=== PATIENT | male | born 1995 | race Caucasian/White ===

== ENCOUNTER 2017-11-26 18:01 | Emergency (ER) | payer OTHER ==
[~2017-11-26 18:01] MED LIST: CLIN300C99 PO; HYDR-4309 PO; LOR5/325 PO; MULT-1081 PO
--- NOTE | 2017-11-26 18:12 | ER Report ---
History and Physical Time Seen By MD: 18:12 Hx. of Stated Complaint: PATIENT REPORTS THAT HE HAS BEEN FEEING FEVERISH FOR THE LAST 3 DAYS. HE REPORTS THAT ONE EPISODE OF VOMITING EARLIER TODAY THAT HAD SOME BLOOD IN IT HPI/ROS CHIEF COMPLAINT: fever, hematemesis HISTORY OF PRESENT ILLNESS: This is a 22 year old male. He has had fever for several days now. He has had a mild cough. Mild runny nose. No real sore throat. No ear pain. Feels a little short of breath. Earlier today had an episode of vomiting where he vomited up the contents of his stomach that he had just eaten. He threw up the food, then threw up again and had a little blood in the emesis. No blood in stool or melena. He has some food and dietary difficulties, so has intermittent loose stools all the time, and has had some loose stool today as well. No problems with urination. No blood in urine. No nose bleeds. No bruising. No prior bleeding problems. No other stomach problems. Has no real stomach pain at this time. REVIEW OF SYSTEMS: Constitutional: As above. Eyes: No vision changes. ENT: As above. Cardiovascular: No chest pain. Respiratory: As above. Gastrointestinal: No abdominal pain. Genitourinary: No dysuria. Musculoskeletal: No musculoskeletal pain. Skin: No rashes. Neurological: No numbness. No weakness. Has a mild headache. Allergies: Coded Allergies: amoxicillin (Verified Allergy, Unknown, HIVES, 01/07/16) shellfish derived (Verified Allergy, Unknown, stomach ache, 01/07/16) Home Meds Reported Medications Digestive Enzymes Combo No.7 (Superior Digestive Enzyme) 1 Each Capsule 11/26/17 Multivitamin (MULTI VITAMIN DAILY) 1 Each Tablet, 1 EACH PO QDAY 11/26/17 Discontinued Scripts Hydrocodone Bit/Acetaminophen (NORCO 5-325 TABLET) 1 Each Tablet, 1 TAB PO Q4- 6H Y for PAIN, #12 TAB Prov:JORDANA MOLINA 01/07/16 Clindamycin Hcl (CLINDAMYCIN HCL) 300 Mg Capsule, 300 MG PO Q6H, #40 CAPSULE Prov:JORDANA MOLINA 01/07/16 Reviewed Nurses Notes: Yes Hx Smoking: No Hx Substance Use Disorder: No Hx Alcohol Use: No Constitutional Vital Sign - Last 24 Hours 11/26/17 11/26/17 11/26/17 11/26/17 18:04 18:05 18:16 18:30 Temp 98.4 Pulse 70 81 Resp 16 B/P (MAP) 161/93 (115) 161/93 136/76 (96) Pulse Ox 91 90 O2 Delivery Room Air 11/26/17 11/26/17 11/26/17 11/26/17 18:31 18:46 18:51 19:21 Pulse 74 71 74 80 Pulse Ox 97 96 96 87 11/26/17 11/26/17 11/26/17 19:51 20:00 20:06 Pulse 73 89 B/P (MAP) 146/90 (108) Pulse Ox 92 89 Intake and Output 11/26/17 11/26/17 11/27/17 15:00 23:00 07:00 Intake Total 1000 ml Balance 1000 ml Physical Exam General Appearance: The patient is alert. No acute distress. Eyes: Pupils are equal, round. No pallor, injection or icterus. ENT: Mucous membranes are moist. Normal oral mucosa. Posterior oropharynx is normal. Normal nasal mucosa. Normal tympanic membranes and canals. Neck: Supple and non tender. No lymphadenopathy. Respiratory: Breathing easily and unlabored. Lungs are clear to auscultation. Cardiovascular: Regular rate and rhythm. No murmurs, gallops or rubs. Normal capillary refill. No edema. Gastrointestinal: Abdomen is soft, no tenderness throughout. Nondistended. No masses or organomegaly. Normal active bowel sounds. No costovertebral angle tenderness with percussion. Neurological: Alert and oriented x3. Skin: Warm and dry. No rashes. No bruising. Musculoskeletal: Extremities are nontender. No tenderness in palpation of the cervical, thoracic and lumbar spine. DIFFERENTIAL DIAGNOSIS: After history and physical exam, differential diagnosis was considered for patient with hematemesis, fever. We'll look for various causes of bleeding, looking for possible causes of bleeding from the stomach, and the causes of fever with a little bit of shortness breath. Medical Decision Making Data Points Result Diagram: 11/26/17182911/26/17 1830 Laboratory Hematology Test 11/26/17 18:30 11/26/17 19:40 Red Blood Count 5.01 M/uL (4.00-5.60) Mean Corpuscular Volume 93.9 fL (80.0-96.0) Mean Corpuscular Hemoglobin 32.7 pg (26.0-33.0) Mean Corpuscular Hemoglobin Concent 34.8 g/dL (32.0-36.0) Red Cell Distribution Width 12.8 % (11.5-14.5) Mean Platelet Volume 7.9 fL (7.2-11.1) Neutrophils (%) (Auto) 74.2 % (39.4-72.5) Lymphocytes (%) (Auto) 11.2 % (17.6-49.6) Monocytes (%) (Auto) 12.9 % (4.1-12.4) Eosinophils (%) (Auto) 0.5 % (0.4-6.7) Basophils (%) (Auto) 1.2 % (0.3-1.4) Nucleated RBC Relative Count (auto) 0.0 /100WBC Neutrophils # (Auto) 2.4 K/uL (2.0-7.4) Lymphocytes # (Auto) 0.4 K/uL (1.3-3.6) Monocytes # (Auto) 0.4 K/uL (0.3-1.0) Eosinophils # (Auto) 0.0 K/uL (0.0-0.5) Basophils # (Auto) 0.0 K/uL (0.0-0.1) Nucleated RBC Absolute Count (auto) 0.00 K/uL Peripheral Blood Smear Yes Y/N Prothrombin Time 13.9 seconds (12.0-14.4) Prothromb Time International Ratio 1.07 Activated Partial Thromboplast Time 31 seconds (23-35) Sodium Level 136 mmol/L (137-145) Potassium Level 4.1 mmol/L (3.5-5.0) Chloride Level 98 mmol/L (98-107) Carbon Dioxide Level 27 mmol/L (22-30) Blood Urea Nitrogen 22 mg/dl (9-21) Creatinine 1.00 mg/dl (0.66-1.25) Glomerular Filtration Rate Calc > 60.0 Random Glucose 80 mg/dl (75-110) Calcium Level 9.1 mg/dl (8.4-10.2) Total Bilirubin 1.0 mg/dl (0.2-1.3) Aspartate Amino Transf (AST/SGOT) 41 U/L (0-35) Alanine Aminotransferase (ALT/SGPT) 49 U/L (0-56) Alkaline Phosphatase 63 U/L (0-126) Total Protein 8.0 gm/dl (6.3-8.2) Albumin 4.5 g/dl (3.5-5.0) Helicobacter pylori IgG Antibody Negative (NEGATIVE) Influenza Virus Type A (PCR) Negative (NEGATIVE) Influenza Virus Type B (PCR) Positive (NEGATIVE) Urine Color Yellow Urine Clarity Clear Urine pH 6.0 pH (4.8-9.5) Urine Specific [place] 1.024 Urine Protein Negative mg/dL (NEGATIVE) Urine Glucose (UA) Negative mg/dL (NEGATIVE) Urine Ketones Trace mg/dL (NEGATIVE) Urine Blood Negative (NEGATIVE) Urine Nitrite Negative (NEGATIVE) Urine Bilirubin Negative (NEGATIVE) Urine Urobilinogen Negative mg/dL (0.2-1.9) Urine Leukocyte Esterase Negative (NEGATIVE) Urine RBC None /HPF (0-2/HPF) Urine WBC <1 /HPF (0-5/HPF) Urine Squamous Epithelial Cells None /LPF (</=FEW) Urine Bacteria Negative /HPF (NONE-FEW) Urine Mucus None /HPF (NONE-FEW) Chemistry Test 11/26/17 18:30 11/26/17 19:40 White Blood Count 3.3 k/uL (4.5-11.0) Red Blood Count 5.01 M/uL (4.00-5.60) Hemoglobin 16.4 g/dL (14.0-18.0) Hematocrit 47.0 % (42.0-52.0) Mean Corpuscular Volume 93.9 fL (80.0-96.0) Mean Corpuscular Hemoglobin 32.7 pg (26.0-33.0) Mean Corpuscular Hemoglobin Concent 34.8 g/dL (32.0-36.0) Red Cell Distribution Width 12.8 % (11.5-14.5) Platelet Count 144 K/uL (150-450) Mean Platelet Volume 7.9 fL (7.2-11.1) Neutrophils (%) (Auto) 74.2 % (39.4-72.5) Lymphocytes (%) (Auto) 11.2 % (17.6-49.6) Monocytes (%) (Auto) 12.9 % (4.1-12.4) Eosinophils (%) (Auto) 0.5 % (0.4-6.7) Basophils (%) (Auto) 1.2 % (0.3-1.4) Nucleated RBC Relative Count (auto) 0.0 /100WBC Neutrophils # (Auto) 2.4 K/uL (2.0-7.4) Lymphocytes # (Auto) 0.4 K/uL (1.3-3.6) Monocytes # (Auto) 0.4 K/uL (0.3-1.0) Eosinophils # (Auto) 0.0 K/uL (0.0-0.5) Basophils # (Auto) 0.0 K/uL (0.0-0.1) Nucleated RBC Absolute Count (auto) 0.00 K/uL Peripheral Blood Smear Yes Y/N Prothrombin Time 13.9 seconds (12.0-14.4) Prothromb Time International Ratio 1.07 Activated Partial Thromboplast Time 31 seconds (23-35) Glomerular Filtration Rate Calc > 60.0 Calcium Level 9.1 mg/dl (8.4-10.2) Total Bilirubin 1.0 mg/dl (0.2-1.3) Aspartate Amino Transf (AST/SGOT) 41 U/L (0-35) Alanine Aminotransferase (ALT/SGPT) 49 U/L (0-56) Alkaline Phosphatase 63 U/L (0-126) Total Protein 8.0 gm/dl (6.3-8.2) Albumin 4.5 g/dl (3.5-5.0) Helicobacter pylori IgG Antibody Negative (NEGATIVE) Influenza Virus Type A (PCR) Negative (NEGATIVE) Influenza Virus Type B (PCR) Positive (NEGATIVE) Urine Color Yellow Urine Clarity Clear Urine pH 6.0 pH (4.8-9.5) Urine Specific [place] 1.024 Urine Protein Negative mg/dL (NEGATIVE) Urine Glucose (UA) Negative mg/dL (NEGATIVE) Urine Ketones Trace mg/dL (NEGATIVE) Urine Blood Negative (NEGATIVE) Urine Nitrite Negative (NEGATIVE) Urine Bilirubin Negative (NEGATIVE) Urine Urobilinogen Negative mg/dL (0.2-1.9) Urine Leukocyte Esterase Negative (NEGATIVE) Urine RBC None /HPF (0-2/HPF) Urine WBC <1 /HPF (0-5/HPF) Urine Squamous Epithelial Cells None /LPF (</=FEW) Urine Bacteria Negative /HPF (NONE-FEW) Urine Mucus None /HPF (NONE-FEW) Coagulation Test 11/26/17 18:30 Prothrombin Time 13.9 seconds Prothromb Time International Ratio 1.07 Activated Partial Thromboplast Time 31 seconds Urinalysis Test 11/26/17 19:40 Urine Color Yellow Urine Clarity Clear Urine pH 6.0 pH (4.8-9.5) Urine Specific [place] 1.024 Urine Protein Negative mg/dL (NEGATIVE) Urine Glucose (UA) Negative mg/dL (NEGATIVE) Urine Ketones Trace mg/dL (NEGATIVE) Urine Blood Negative (NEGATIVE) Urine Nitrite Negative (NEGATIVE) Urine Bilirubin Negative (NEGATIVE) Urine Urobilinogen Negative mg/dL (0.2-1.9) Urine Leukocyte Esterase Negative (NEGATIVE) Urine RBC None /HPF (0-2/HPF) Urine WBC <1 /HPF (0-5/HPF) Urine Squamous Epithelial Cells None /LPF (</=FEW) Urine Bacteria Negative /HPF (NONE-FEW) Urine Mucus None /HPF (NONE-FEW) ED Course/Re-evaluation Clinical Indication for ER IV: Hydration, IV Access ED Course Initial evaluation as noted above. IV started and Zofran and a liter of normal saline was given. Patient feels much better. Labs as noted above; reviewed these with the patient. Likely small bleeding after vomiting from surface vessel in esophagus, but could be ulcer disease. He has follow-up planned in 2 weeks with his doctor in [place]. Can follow-up with Dr. Lynn or [facility] this week. Avoid foods that would cause stomach upset as noted below. Start PPI and Zofran available as needed. Influenza symptoms should resolve over time with fluid and rest. Start Tylenol for pain or fevers. Decision to Disposition Date: Nov 26, 2017 Decision to Disposition Time: 19:57 Depart Departure Latest Vital Signs Vital Signs Date Time Temp Pulse Resp B/P (MAP) Pulse Ox O2 Delivery O2 Flow Rate FiO2 11/26/17 20:06 89 89 11/26/17 20:00 146/90 (108) 11/26/17 18:05 98.4 16 Room Air Impression: Primary Impression: Influenza Additional Impression: Hematemesis Condition: Improved Disposition: HOME OR SELF-CARE Referrals: MARKO LYNN MD Patient Instructions: Hematemesis (ED), Influenza (ED) Additional Instructions: Lab testing tonight did not reveal any major problems. Your platelets were just a touch low, the rest of the blood count was normal. You have influenza which is causing most of your symptoms. The blood in the vomiting was likely caused by a little bleeding from the esophagus related to the vomiting. Avoid aspirin and Ibuprofen for now. Avoid any foods that are irritating to the stomach such as coffee, chocolate, acidic food or very spicy foods. Take Tylenol as needed for pain. Rest and increase fluid intake. If you have further bleeding such as blood in the stool or further vomiting of blood you can return here for re-evaluation. You can follow-up with [facility] this week for re- evaluation. You can make an appointment with one of the general surgeons in [facility] who can re- evaluate and do an upper endoscopy to look into your stomach and esophagus. You can start taking over the counter Omeprazole 20mg tablets or capsules, take twice a day. You can use Zofran 4mg oral dissolving tablets, one every 6 hours as needed for nausea or vomiting. Problem Qualifiers Additional Impression: Hematemesis Nausea presence: with nausea Qualified Codes: K92.0 - Hematemesis CHASE HOGUE MD Nov 26, 2017 18:12
[2017-11-26] MEDS ORDERED: MULT1TAB64 PO (18:13)
[2017-11-26] MEDS ORDERED: DIGE1CAP (18:13)
[2017-11-26] MEDS ORDERED: ONDANSETRON 4 MG/2 ML VIAL IVP ONE (18:25)
[2017-11-26] MEDS ORDERED: NS(*) 0.9% 1000 ML BAG 1,000 ML IV ONE (18:25)
[2017-11-26 18:47] LABS: PLATELET COUNT, AUTOMATED 144 K/uL (150-450)
[2017-11-26 18:56] LABS: INR 1.07
--- NOTE | 2017-11-26 19:46 | RADIOLOGY IMAGING REPORT ---
FACILITY: [facility] PATIENT NAME: Chu Mahan : 1995 MR: [id number] V: [id number] EXAM DATE: ORDERING PHYSICIAN: CHASE HOGUE TECHNOLOGIST: Location: [facility] [place] Patient: Chu Mahan : 1995 Visit/Account:[id number] Date of Sevice: 11/26/2017 HISTORY: Hematemesis DATE: 11/26/2017 6:22 PM TECHNIQUE: CHEST PA AND LAT COMPARISON: none FINDINGS: The cardiomediastinal silhouette is of normal size and contour. No pleural effusion. No pne umothorax. No consolidation. The lungs are adequately expanded. IMPRESSION: Normal chest. Report Dictated By: Gale Mcgovern MD at 11/26/2017 7:41 PM Report E-Signed By: Gale Mcgovern MD at 11/26/2017 7:41 PM WSN:[id number]
--- NOTE | 2017-11-26 19:49 | RADIOLOGY IMAGING REPORT ---
FACILITY: [facility] PATIENT NAME: Chu Mahan : 1995 MR: [id number] V: [id number] EXAM DATE: ORDERING PHYSICIAN: CHASE HOGUE TECHNOLOGIST: Location: [facility] [place] Patient: Chu Mahan : 1995 Visit/Account:[id number] Date of Sevice: 11/26/2017 INDICATION: Hematemesis, fever. DATE: 11/26/2017 7:44 PM. TECHNIQUE: ABDOMEN AP AND ERECT/DECUB COMPARISON: None FINDINGS: Moderate stool volume. Nonobstructive bowel gas pattern. Osseous structures are unremarkabl e. IMPRESSION: Unremarkable. Report Dictated By: Gale Mcgovern MD at 11/26/2017 7:44 PM Report E-Signed By: Gale Mcgovern MD at 11/26/2017 7:45 PM WSN:[id number]
[2017-11-26 20:00] VITALS: BP 146/90
[2017-11-26] MEDS ORDERED: ONDANSETRON 4 MG ODT TH SL ONE (20:05)
[2017-11-26] MEDS ORDERED: PANTOPRAZOLE SOD 40 MG TABEC PO ONE (20:05)
== END 2017-11-26 20:21 | disposition home or self-care (01) ==
LOC: ER 18:16
DX: J11.1 Influenza due to unidentified influenza virus with other respiratory manifestations (principal); K92.0 Hematemesis
CPT/HCPCS: 71046; 74019; 81001; 85025; 85610; 85730; 86677; 87502; 96361; 96374; 99284; J2405; J7030; S0119; 82040; 82247; 82310; 82374; 82435; 82565; 82947; 84075; 84132; 84155; 84295; 84450; 84460; 84520